=== PATIENT | female | born 1990 | race Caucasian/White ===

== ENCOUNTER 2017-05-14 13:23 | Emergency (ER) | payer OTHER ==
[~2017-05-14] VITALS: Ht 162.5 cm; Wt 61.2 kg
[~2017-05-14 13:23] MED LIST: PRILOSEC20 M1 PO; SEPTRA DS 800 M1 TAB PO; TOBRADEX 0.1%-0.5 ML OPH; Zofran4 MG PO
[2017-05-14] MEDS ORDERED: PREMPRO 0.625 M1 TA3 PO (13:33)
[2017-05-14 14:22] LABS: BASO % 0.2 % (0.0-1.0); EOS % 0.1 % (1.0-4.0); HEMATOCRIT 40.8 % (37.0-47.0); HEMOGLOBIN 13.6 g/dl (12.0-16.0); IG # 0.1 10*3/uL (0.0-0.1); LYMPH # 0.8 10*3/uL (1.3-4.4); LYMPH % 5.4 % (27.0-41.0); MEAN CELL VOLUME 84.6 fl (81.0-99.0); MEAN CORPUSCULAR HGB 28.2 pg (27.0-31.0); MEAN CORPUSCULAR HGB CONC 33.3 g/dl (33.0-37.0); MEAN PLATELET VOLUME 9.9 fl (9.6-12.3); MONO # 0.6 10*3/uL (0.1-1.0); MONO % 3.8 % (3.0-9.0); NEUT # 13.9 10*3/uL (2.3-7.9); PLATELET COUNT AUTOMATED 305 10*3/uL (130-400); RED BLOOD COUNT 4.82 10*6/uL (4.10-5.10); RED CELL DISTRI WIDTH 13.2 % (0-14.5); WHITE BLOOD COUNT 15.4 10*3/uL (4.8-10.8)
[2017-05-14 14:37] LABS: ALKALINE PHOSPHATASE 88 U/L (45-117); BILIRUBIN, TOTAL 0.5 mg/dl (0.2-1.0); BUN 8 mg/dl (7-24); C-REACTIVE PROTEIN 0.59 MG/DL (0-0.3); CARBON DIOXIDE 25 mmol/L (21-32); CHLORIDE 105 mmol/L (98-107); EST GLOM FILT AFRICAN AMERICAN > 60 ml/min; GLUCOSE 97 mg/dL (65-99); POTASSIUM 3.7 mmol/L (3.5-5.1); SGOT/AST 15 IU/L (3-35); SGPT/ALT 14 U/L (12-78); SODIUM 141 mmol/L (136-145); TOTAL PROTEIN 7.8 gm/dL (6.4-8.2)
[2017-05-14 14:42] LABS: BILIRUBIN NEGATIVE (NEGATIVE); BLOOD TRACE-INTACT (NEGATIVE); CLARITY SL CLOUDY (CLEAR); COLOR YELLOW (YELLOW); GLUCOSE NEGATIVE (NEGATIVE); KETONE TRACE (NEGATIVE); LEUKO ESTERASE NEGATIVE (NEGATIVE); NITRITE NEGATIVE (NEGATIVE); PH 5.5 (5.0-9.0); PROTEIN NEGATIVE (NEGATIVE); SPECIFIC GRAVITY 1.025 (1.005-1.030); UROBILINOGEN 0.2 E.U./dl (0.2-1.0)
[2017-05-14 14:56] LABS: BACTERIA 3+; CALCIUM OXALATE CRYSTALS 1+; MUCOUS TRACE; URINE REFLEX COMMENT YES (NO)
[2017-05-14] MEDS ORDERED: ZOFRAN ODT4 MG SL (16:44)
[2017-05-14] MEDS ORDERED: Motrin,Rufen800 MG PO (16:44)
== END 2017-05-14 16:58 | disposition home or self-care (01) ==
LOC: ED 13:23
PROVIDERS: Emergency Medicine
DX: K52.9 Noninfective gastroenteritis and colitis, unspecified (principal); N94.89 Other specified conditions associated with female genital organs and menstrual cycle

== ENCOUNTER 2018-11-30 20:00 | Emergency (ER) | payer OTHER ==
[~2018-11-30] VITALS: Ht 162.5 cm; Wt 52.2 kg
[~2018-11-30 20:00] MED LIST changes: +Motrin,Rufen800 MG PO; +PREMPRO 0.625 M1 TA3 PO; +ZOFRAN ODT4 MG SL
[2018-11-30] MEDS ORDERED: Motrin,Rufen800 MG PO (21:49)
== END 2018-11-30 21:48 | disposition home or self-care (01) ==
LOC: ED 20:00
DX: S93.502A Unspecified sprain of left great toe, initial encounter (principal); Z79.899 Other long term (current) drug therapy; W22.8XXA Striking against or struck by other objects, initial encounter; Y93.89 Activity, other specified; Y92.89 Other specified places as the place of occurrence of the external cause; Y99.8 Other external cause status

== ENCOUNTER 2019-02-18 21:21 | Emergency (ER) | payer OTHER ==
[~2019-02-18] VITALS: Ht 162.5 cm; Wt 54.4 kg
[2019-02-18] MEDS ORDERED: ZYRTEC10 M3 PO (21:26)
[2019-02-18 22:00] LABS: BASO % 0.6 % (0.0-1.0); EOS # 0.1 10*3/uL (0.0-0.4); HEMATOCRIT 42.9 % (37.0-47.0); HEMOGLOBIN 14.2 g/dl (12.0-16.0); LYMPH # 0.5 10*3/uL (1.3-4.4); LYMPH % 9.9 % (27.0-41.0); MEAN CELL VOLUME 88.1 fl (81.0-99.0); MEAN CORPUSCULAR HGB 29.2 pg (27.0-31.0); MEAN CORPUSCULAR HGB CONC 33.1 g/dl (33.0-37.0); MEAN PLATELET VOLUME 9.4 fl (9.6-12.3); MONO # 0.6 10*3/uL (0.1-1.0); MONO % 10.9 % (3.0-9.0); NEUT # 4.1 10*3/uL (2.3-7.9); NEUT % 77.2 % (47.0-73.0); PLATELET COUNT AUTOMATED 257 10*3/uL (130-400); RED BLOOD COUNT 4.87 10*6/uL (4.10-5.10); RED CELL DISTRI WIDTH 13.2 % (0-14.5); WHITE BLOOD COUNT 5.3 10*3/uL (4.8-10.8)
[2019-02-18 22:22] LABS: ALBUMIN 3.6 gm/dl (3.1-4.5); ALKALINE PHOSPHATASE 88 U/L (45-117); BUN 6 mg/dl (7-24); CHLORIDE 103 mmol/L (98-107); POTASSIUM 3.6 mmol/L (3.5-5.1); SGOT/AST 11 IU/L (3-35); SGPT/ALT 17 U/L (12-78); SODIUM 138 mmol/L (136-145); TOTAL PROTEIN 8.3 gm/dL (6.4-8.2)
[2019-02-18] MEDS ORDERED: PREDNISONE50 MG PO (22:52)
[2019-02-18] MEDS ORDERED: AVPAK AZITHROM250 MG PO (22:52)
[2019-02-18] MEDS ORDERED: PROAIR HFA8.5 GM INH (22:52)
[2019-02-18] MEDS ORDERED: MUCINEX1200 M1 PO (22:52)
== END 2019-02-18 23:34 | disposition home or self-care (01) ==
LOC: ED 21:21
PROVIDERS: Nurse Practitioner Family
DX: J20.9 Acute bronchitis, unspecified (principal); J10.1 Influenza due to other identified influenza virus with other respiratory manifestations; H92.03 Otalgia, bilateral; Z79.899 Other long term (current) drug therapy

== ENCOUNTER 2019-11-05 07:28 | Emergency (ER) | payer OTHER ==
[~2019-11-05] VITALS: Ht 162.5 cm; Wt 58.1 kg
[~2019-11-05 07:28] MED LIST changes: +AVPAK AZITHROM250 MG PO; +MUCINEX1200 M1 PO; +PREDNISONE50 MG PO; +PROAIR HFA8.5 GM INH; +ZYRTEC10 M3 PO
== END 2019-11-05 08:53 | disposition home or self-care (01) ==
LOC: ED 07:28
DX: S90.31XA Contusion of right foot, initial encounter (principal); Z79.899 Other long term (current) drug therapy; X58.XXXA Exposure to other specified factors, initial encounter; Y93.89 Activity, other specified; Y92.89 Other specified places as the place of occurrence of the external cause; Y99.8 Other external cause status